=== PATIENT | male | born 1950 | race African-American/Black ===

== ENCOUNTER 2017-07-07 14:02 | Observation (INO) | payer MEDICARE, MEDICAID ==
--- NOTE | 2017-07-07 14:43 | CT ---
CT BRAIN WITHOUT CONTRAST: Date: 07/07/17 HISTORY: Dizziness. Headache. FINDINGS: There are changes of cortical atrophy. Ventricular size is appropriate. No evidence of infarct, hemor rhage, midline shift, or abnormal extra-axial fluid collections are seen. The bony calvarium is intac t. The visualized paranasal sinuses and mastoid air cells are well aerated. No acute calvarial abnorm alities are seen. IMPRESSION: No CT evidence of acute intracranial process. POS: OFF
--- NOTE | 2017-07-07 14:57 | RAD ---
CHEST 1 VIEW: Date: 07/07/17 COMPARISON: 02/25/14. HISTORY: Chest pain. FINDINGS: There are sternotomy wires. Slight elongation of the aorta. Normal cardiac silhouette. Pulmonary vess els are normal. Costophrenic angles are clear. Diminished lung volumes. No mass or consolidation. Inc reased lucency of left lung apex. Pneumothorax cannot be excluded. No osseous abnormalities. IMPRESSION: Decreased lung volumes which may be due to poor inspiration. Possible left apical pneumothorax. Two v iew chest radiograph with better inspiration is recommended. Results of study discussed with Dr. Aguilar on 07/07/17 at 1449 hours. CODE CR. POS: [facility]
[2017-07-07] MEDS ORDERED: Acetaminophen 500 MG TAB ONE (15:17)
--- NOTE | 2017-07-07 15:35 | RAD ---
PA AND LATERAL VIEWS CHEST: HISTORY: Shortness of breath. FINDINGS: Comparison is made with the exam of 08/28/09. There are changes of median sternotomy. The heart size is normal. No confluent areas of consolidati on, pneumothoraces, or pleural effusions are seen. Degenerative changes are present in the spine. No radiographic evidence of acute cardiopulmonary process. The soft tissue density in the right para tracheal region is stable. IMPRESSION: No radiographic evidence of acute cardiopulmonary process. POS: OFF
[2017-07-07 15:46] LABS: #Eosinphils 0.9 thou/uL (0.0-0.7); #Lymphocytes 2.2 thou/uL (1.20-3.40); #Monocytes 0.8 thou/uL (0.11-0.59); #Neutrophils 5.1 thou/uL (1.40-6.50); %Basophils 0.5 % (0.0-1.0); %Eosinophils 9.8 % (0.0-10.0); %Lymphocytes 24.2 % (21.0-51.0); %Monocytes 9.2 % (0.0-10.0); %Neutrophils 56.3 % (42.0-75.0); Hemoglobin 13.3 g/dL (14.0-18.0); Mean Corpuscular HGB CONC 32.9 g/dL (32.0-36.0); Mean Corpuscular Hemoglobin 31.9 pg (27.0-31.0); Mean Corpuscular Volume 96.8 fl (80.0-94.0); Mean Platelet Volume 6.7 fL (7.4-10.4); Platelet Count 379 thou/uL (130-400); RBC Distribution Width 12.4 % (11.5-14.5); Red Blood Cell (RBC) Count 4.18 mill/uL (4.70-6.10); White Blood Cell (WBC) Count 9.1 thou/uL (4.8-10.8)
[2017-07-07 16:09] LABS: CKMB 3.4 ng/mL (0-6.6); Troponin I 0.011 ng/mL (< 0.028)
[2017-07-07 16:10] LABS: ALT (SGPT) 21 U/L (8-55); AST (SGOT) 18 U/L (5-34); Albumin 4.2 g/dL (3.4-4.8); Alkaline Phosphatase 81 U/L (40-150); Anion Gap 14 mmol/L (10-20); BUN (Urea Nitrogen) 7 mg/dL (8.4-25.7); Bilirubin, Total 0.5 mg/dL (0.2-1.2); Calc. Creatinine Clearance 0 mL/min (70-130); Calcium 9.6 mg/dL (7.8-10.44); Carbon Dioxide 21 mmol/L (23-31); Chloride 95 mmol/L (98-107); Estimated GFR-MDRD Greater than 90; Globulin 3.3 g/dL (2.4-3.5); Glucose 92 mg/dL (80-115); Lipase 28 U/L (8-78); Potassium 4.3 mmol/L (3.5-5.1); Protein, Total 7.5 g/dL (5.8-8.1); Sodium 126 mmol/L (136-145)
[2017-07-07] MEDS ORDERED: Sodium Chloride 0.9% 1,000 ML IV SCH (19:45)
[2017-07-07 23:02] LABS: Troponin I 0.023 ng/mL (< 0.028)
[2017-07-08 06:04] LABS: Cardiac Risk 4.4 (Less than 4.5)
[2017-07-08] MEDS ORDERED: Aspirin 325 MG TAB PO SCH (09:00)
[2017-07-08] MEDS: Carvedilol 3.125 MG TAB PO SCH ×2 (09:30→20:15)
[2017-07-08] MEDS: Enoxaparin Sodium 30 MG/0.3 ML SYRINGE SC SCH ×2 (09:30→09:31)
[2017-07-08] MEDS ORDERED: Nitroglycerin 0.4 MG TAB (25 Tab Bottle) SL PRN (11:50)
[2017-07-08] MEDS ORDERED: traMADol HCl 50 MG TAB PO PRN (11:50)
[2017-07-08] MEDS ORDERED: [UNRECOGNIZED DRUG - OTHER] PO SCH (12:00)
[2017-07-08 12:17] LABS: #Eosinphils 0.7 thou/uL (0.0-0.7); #Lymphocytes 2.2 thou/uL (1.20-3.40); #Monocytes 0.7 thou/uL (0.11-0.59); #Neutrophils 3.6 thou/uL (1.40-6.50); %Basophils 0.1 % (0.0-1.0); %Lymphocytes 30.2 % (21.0-51.0); %Monocytes 9.2 % (0.0-10.0); %Neutrophils 50.5 % (42.0-75.0); Hemoglobin 12.4 g/dL (14.0-18.0); Mean Corpuscular Hemoglobin 31.7 pg (27.0-31.0); Mean Corpuscular Volume 96.2 fl (80.0-94.0); Mean Platelet Volume 6.7 fL (7.4-10.4); Platelet Count 374 thou/uL (130-400); RBC Distribution Width 12.3 % (11.5-14.5); Red Blood Cell (RBC) Count 3.92 mill/uL (4.70-6.10); White Blood Cell (WBC) Count 7.2 thou/uL (4.8-10.8)
--- NOTE | 2017-07-08 12:20 | PDOC.PN ---
- Subjective Encounter Start Date: 07/08/17 Encounter Start Time: 12:16 -: non-verbal Subjective: nsg notes rev, sayra ovn, 4 family members @ bedside, pt still has some -: nausea and ARCHER and chest pain but less severe. + BM earlier this morning - Objective Resuscitation Status: Resuscitation Status FULL:Full Resuscitation Vital Signs & Weight: Vital Signs (12 hours) Temp Pulse Resp BP Pulse Ox 07/08/17 11:53 97.9 F 63 18 131/80 99 07/08/17 08:00 97.9 F 68 16 122/76 100 07/08/17 07:02 95 07/08/17 04:00 98 F 58 L 20 148/85 H 98 07/08/17 01:11 64 Weight Weight 243 lb 3 oz I&O: 07/07/17 07/08/17 07/09/17 06:59 06:59 06:59 Intake Total 2340 180 Output Total 1450 Balance 890 180 Result Diagrams: 07/07/17 15:29 07/07/17 15:29 Phys Exam - Physical Examination Constitutional: NAD lying in hospital bed HEENT: PERRLA, moist MMs, sclera anicteric Neck: no nodes Respiratory: no wheezing, no rales, no rhonchi, clear to auscultation bilateral marginal air mvmt Cardiovascular: RRR, no significant murmur, no rub Gastrointestinal: soft, non-tender, no distention, positive bowel sounds Musculoskeletal: no edema, pulses present Neurological: moves all 4 limbs Psychiatric: normal affect Dx/Plan - Plan 67M with hx CABG, CAD, HTN, HLD, DM2, who p/w chest pain chest pain * initial troponin has been neg * pt has elev risk factors including prior hx of CAD req CABG * apparently pt ran out of his medications a day prior to onset of symptoms and presentation * trop have been indetermine - repeat trop * pending ECHO * will c/s cardiology - has seen Dr. Romeo for a [facility] in 2013 hyponatremia * stable mentation per family * recheck BMP and closely monitor neurological status hx CAD s/p CABG, as per above HTN, stable and controlled with continued ssx HLD stable DM2 stable diet: cardiac diabetic Review of Systems - Medications/Allergies Allergies/Adverse Reactions: Allergies Allergy/AdvReac Type Severity Reaction Status Date / Time No Known Allergies Allergy Unverified 02/25/14 17:38 Medications: Current Medications Aspirin (Ecotrin) 325 mg PO DAILY [facility] Carvedilol (Coreg) 3.125 mg PO BID [facility] Last Admin: 07/08/17 09:30 Dose: 3.125 mg Carvedilol (Coreg) 3.125 mg PO DAILY [facility] Enoxaparin Sodium (Lovenox) 30 mg SC 0900 [facility] Last Admin: 07/08/17 09:31 Dose: 30 mg Hydrochlorothiazide (Hydrochlorothiazide) 25 mg PO DAILY [facility] Isosorbide Mononitrate (Imdur) 60 mg PO DAILY [facility] Losartan Potassium (Cozaar) 25 mg PO DAILY [facility] Metformin HCl (Glucophage Xr) 1,000 mg PO BID[facility] Nitroglycerin (Nitrostat) 0.4 mg SL Q5MIN PRN PRN Reason: Chest Pain Prozac Weekly 90mg Patient's Home Medication 1 each PO Q7D [facility] Potassium Chloride (K-Dur) 20 meq PO DAILY [facility] Pravastatin Sodium (Pravachol) 40 mg PO HS [facility] Ranolazine (Ranexa) 500 mg PO BID [facility] Tramadol HCl (Ultram) 25 mg PO TID PRN PRN Reason: Pain
[2017-07-08] MEDS ORDERED: Dextrose 5% in Water 1,000 ML IV PRN (12:28)
[2017-07-08] MEDS ORDERED: HumaLOG 300 UNITS/3 ML VIAL SC PRN (12:28)
[2017-07-08] MEDS ORDERED: Dextrose 50% Abboject 50 ML SYRINGE SLOW IVP PRN (12:28)
[2017-07-08 12:35] LABS: Anion Gap 9 mmol/L (10-20); BUN (Urea Nitrogen) 8 mg/dL (8.4-25.7); Calc. Creatinine Clearance 130 mL/min (70-130); Calcium 9.3 mg/dL (7.8-10.44); Carbon Dioxide 24 mmol/L (23-31); Chloride 105 mmol/L (98-107); Estimated GFR-MDRD Greater than 90; Glucose 91 mg/dL (80-115); Sodium 134 mmol/L (136-145)
[2017-07-08 12:41] LABS: Troponin I Less than 0.010 ng/mL (< 0.028)
--- NOTE | 2017-07-08 13:44 | HP ---
CHIEF COMPLAINT: Chest pain. 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 It appears that the patient had been out of his home medications approximately 1-2 days prior to presentation in cluding his pain medications specifically. The patient's symptoms of chest pain described mostly as a chest pressure with a slight burning component and also accompanied by headache, nausea without abd ominal discomfort. No chest pressure. No left-sided arm numbness or tingling. No episodes of diaph oresis. The patient endorses prior similar episodes in the past. It is unclear if these are directl y related to his prior cardiac event or not. The patient himself has ability to provide a history, is modulated by his family at bedside who provi de a sign language translation at this point in time. REVIEW OF SYSTEMS: Review of systems limited by family members translation as discussed above. Constitutional: No fevers or chills. No significant weight changes that we are aware of. HEENT: Headache as described above as "all over" without vision changes. Cardiovascular: As described above. Respiratory: No recent colds or congestion, sinusitis or ear pain. Gastrointestinal: Nausea as above with retching without vomiting, no diarrhea, no constipation. Musculoskeletal: No focal myalgias or arthralgias. Remainder of the review of systems otherwise negative. PAST MEDICAL HISTORY: As per HPI, 1. Deaf and mute. 2. Diabetes. 3. Hyperlipidemia. 4. Hypertension. 5. Coronary artery disease, status post CABG. HOME MEDICATIONS: Please see the EMR for full details. His list currently includes carvedilol 3.125 mg p.o. daily, aspirin 325 mg p.o. daily, isosorbide mononitrate 60 mg p.o. daily, hydrochlorothiazi de 25 mg p.o. daily, fluoxetine 90 mg p.o. as directed, tramadol 25 mg p.o. t.i.d. p.r.n., metformin 1000 mg p.o. b.i.d., ranolazine 500 mg p.o. b.i.d., pravastatin 40 mg p.o. at bedtime, potassium chlo ride 20 mEq p.o. daily, nitroglycerin 0.4 mg sublingual every 5 minutes p.r.n., losartan 25 mg p.o. d aily. ALLERGIES: No known drug allergies. FAMILY HISTORY: Significant for diabetes, hypertension, coronary artery disease in multiple family m embers. SOCIAL HISTORY: The patient denies any alcohol, tobacco or illicit drug use. His family at bedside endorses but in translation, he wishes to be FULL CODE at this point in time. PHYSICAL EXAMINATION: GENERAL: The patient is awake, interactive, no acute distress, lying in the hospital bed. HEENT: Normocephalic, atraumatic. Moist mucous membranes. Extraocular motions are intact. No post erior oral pharyngeal erythema or exudate. CARDIOVASCULAR: S1 and S2. No murmurs, rubs or gallops. Pulses 2+ bilateral upper extremities. No pitting pedal edema. RESPIRATORY: Reasonable mitral air movement. No wheezes, rales or rhonchi. Clear to auscultation b ilaterally. ABDOMEN: Large, obese, positive bowel sounds, soft, nontender to palpation. MUSCULOSKELETAL: Moving all 4 extremities. LABORATORY AND IMAGING: WBC 9.1, hemoglobin 13.3, hematocrit 40.5, platelet 379. Sodium 126, potass ium 4.3, chloride 95, bicarbonate 21, BUN 7, creatinine 0.85, total bilirubin 0.5, AST 18, ALT 21, al kaline phosphatase 81, troponin 0.011 and subsequent 0.023, total protein 7.5, albumin 4.2, lipase is 28. ASSESSMENT AND PLAN: A 67-year-old male with a known history of coronary artery disease who presente d with chief complaint of chest pain. 1. Chest pain. The patient certainly has personal risk factors with increased risk of having a zacarias nary event. EKG does not demonstrate STEMI at this point in time, place the patient with serial trop onins, echocardiogram to consider a stress test as well. Resume the patient's home regimen. 2. Hyponatremia, unclear if this is incidental or related to the patient's nausea. I will hold the patient's hydrochlorothiazide. Recheck a BMP in the morning. The patient's mentation appears to be at baseline per patient's family at bedside. 3. Hypertension, stable. 4. Hyperlipidemia, stable. 5. Type 2 diabetes, stable. Check hemoglobin A1c and closely monitor glucose with Accu-Cheks. Admit the patient to observation status. FULL CODE. Thank you for asking me to care for the patient. Questions or concerns, please contact me at [facility].
[2017-07-08 13:54] LABS: Hemoglobin A1c 5.9 % (4.0-6.0)
[2017-07-08] MEDS: metFORMIN XR 500 MG TAB PO SCH (17:21)
[2017-07-08] MEDS: Pravastatin Sodium 40 MG TAB PO SCH (20:16)
[2017-07-08 20:51] LABS: Troponin I Less than 0.010 ng/mL (< 0.028)
[2017-07-09 06:41] LABS: Troponin I Less than 0.010 ng/mL (< 0.028)
[2017-07-09] MEDS: metFORMIN XR 500 MG TAB PO SCH ×2 (08:44→17:36)
[2017-07-09] MEDS: Potassium Chloride 20 MEQ TAB PO SCH (08:44)
[2017-07-09] MEDS: Carvedilol 3.125 MG TAB PO SCH ×3 (08:44→20:41)
[2017-07-09] MEDS: Aspirin 325 mg Enteric Coated Tablet PO SCH (08:44)
[2017-07-09] MEDS: Losartan 25 MG TAB PO SCH (08:44)
[2017-07-09] MEDS: Enoxaparin Sodium 30 MG/0.3 ML SYRINGE SC SCH (08:44)
[2017-07-09] MEDS ORDERED: Hydrochlorothiazide 25 MG TAB PO SCH (09:00)
[2017-07-09 10:11] VITALS: BMI 35.9
--- NOTE | 2017-07-09 10:26 | PDOC.PN ---
- Subjective Encounter Start Date: 07/09/17 Encounter Start Time: 10:25 -: non-verbal Subjective: nsg note srev, sayra ovn still has intermittent CP relieved by nitro -: brother at bedside providing modified sign language translation -: pt no new c/o - Objective Resuscitation Status: Resuscitation Status FULL:Full Resuscitation Vital Signs & Weight: Vital Signs (12 hours) Temp Pulse Resp BP Pulse Ox 07/09/17 07:55 98.2 F 57 L 16 07/09/17 07:36 98.2 F 57 L 16 139/77 97 07/09/17 04:00 97.5 F L 58 L 20 149/81 H 98 07/08/17 23:40 98.3 F 65 16 159/81 H 95 Weight Weight 236 lb I&O: 07/08/17 07/09/17 07/10/17 06:59 06:59 06:59 Intake Total 2340 660 240 Output Total 1450 Balance 890 660 240 Result Diagrams: 07/08/17 12:07 07/08/17 12:07 Additional Labs: Accuchecks 07/09/17 07/08/17 07/08/17 04:05 20:42 16:40 POC Glucose 104 125 H 99 Phys Exam - Physical Examination Constitutional: NAD seated in hospital bed HEENT: PERRLA, moist MMs, sclera anicteric, oral pharynx no lesions Respiratory: no wheezing, no rales, no rhonchi, clear to auscultation bilateral limited anterior exam Cardiovascular: RRR, no significant murmur, no rub Gastrointestinal: soft, non-tender, no distention, positive bowel sounds Musculoskeletal: no edema, pulses present Neurological: moves all 4 limbs Psychiatric: normal affect Deviation from normal: per pts family Dx/Plan - Plan 67M with hx CABG, CAD, HTN, HLD, DM2, who p/w chest pain chest pain * initial troponin has been neg * ECHO has been unremarkable * pt has elev risk factors including prior hx of CAD req CABG * apparently pt ran out of his medications a day prior to onset of symptoms and presentation * will c/s cardiology - has seen Dr. Romeo for a [facility] in 2013 * family is concerned about stress testing because they'd heard its a very dangerous test hyponatremia, resolved with no symptoms and without intervention * stable mentation per family * ?lab error on admit hx CAD s/p CABG, as per above HTN, stable and controlled with continued ssx HLD stable DM2 stable diet: cardiac, diabetic activity: as rafal dvt ppx Review of Systems - Medications/Allergies Allergies/Adverse Reactions: Allergies Allergy/AdvReac Type Severity Reaction Status Date / Time No Known Allergies Allergy Unverified 02/25/14 17:38 Medications: Current Medications Aspirin (Ecotrin) 325 mg PO DAILY [facility] Last Admin: 07/09/17 08:44 Dose: 325 mg Carvedilol (Coreg) 3.125 mg PO BID [facility] Last Admin: 07/09/17 08:44 Dose: 3.125 mg Carvedilol (Coreg) 3.125 mg PO DAILY [facility] Last Admin: 07/09/17 08:45 Dose: Not Given Dextrose/Water (Dextrose 50%) 25 gm SLOW IVP PRN PRN PRN Reason: Hypoglycemia Enoxaparin Sodium (Lovenox) 30 mg SC 0900 [facility] Last Admin: 07/09/17 08:44 Dose: 30 mg Glucagon (Glucagon) 1 mg IM PRN PRN PRN Reason: Hypoglycemia Dextrose/Water (D5w) 1,000 mls @ 0 mls/hr IV .Q0M PRN; As Directed PRN Reason: Hypoglycemia Insulin Human Lispro (Humalog) 0 units SC .MILD SLIDING SCALE PRN PRN Reason: Mild Correctional Scale Isosorbide Mononitrate (Imdur) 60 mg PO DAILY [facility] Last Admin: 07/09/17 08:44 Dose: 60 mg Losartan Potassium (Cozaar) 25 mg PO DAILY [facility] Last Admin: 07/09/17 08:44 Dose: 25 mg Metformin HCl (Glucophage Xr) 1,000 mg PO BID[facility] Last Admin: 07/09/17 08:44 Dose: 1,000 mg Nitroglycerin (Nitrostat) 0.4 mg SL Q5MIN PRN PRN Reason: Chest Pain Last Admin: 07/08/17 18:47 Dose: 0.4 mg Prozac Weekly 90mg Patient's Home Medication 1 each PO Q7D [facility] Potassium Chloride (K-Dur) 20 meq PO DAILY [facility] Last Admin: 07/09/17 08:44 Dose: 20 meq Pravastatin Sodium (Pravachol) 40 mg PO HS [facility] Last Admin: 07/08/17 20:16 Dose: 40 mg Ranolazine (Ranexa) 500 mg PO BID [facility] Last Admin: 07/09/17 08:44 Dose: 500 mg Tramadol HCl (Ultram) 25 mg PO TID PRN PRN Reason: Pain
[2017-07-09 12:26] LABS: Troponin I Less than 0.010 ng/mL (< 0.028)
[2017-07-09] MEDS: Pravastatin Sodium 40 MG TAB PO SCH (20:40)
--- NOTE | 2017-07-09 21:10 | CON ---
DATE OF CONSULTATION: 07/09/2017 REASON FOR CONSULTATION: Chest pain. HISTORY OF PRESENT ILLNESS: This is a 67-year-old gentleman who is currently deaf and mute. His bro ther is currently available and has given the history. His main complaint was chest discomfort. He has been taking sublingual nitroglycerin, ran out. The patient describes a burning-type discomfort a ssociated with headaches, although was taking nitroglycerin. He also had associated nausea. PAST MEDICAL HISTORY: CAD, diabetes mellitus, hyperlipidemia, hypertension. PAST SURGICAL HISTORY: CABG. MEDICATIONS: Carvedilol, aspirin, isosorbide, hydrochlorothiazide, fluoxetine, tramadol, metformin, ranolazine, and pravastatin. ALLERGIES: None. FAMILY HISTORY: Positive for CAD. SOCIAL HISTORY: No current tobacco or alcohol use. REVIEW OF SYSTEMS: Ten-point review of systems reviewed and as above, otherwise negative. PHYSICAL EXAMINATION: VITAL SIGNS: Blood pressure 118/62, pulse 62, temperature 98.4. GENERAL: Patient is a pleasant male, who is in no acute distress. The patient appears his stated ag e. NEUROLOGIC: The patient is alert and oriented times 3 with no focal neurologic deficits. HEENT: Sclerae without icterus. Mouth has moist mucous membranes with normal pallor. NECK: No JVD. Carotid upstroke brisk. No bruits bilaterally. LUNGS: Clear to auscultation with unlabored respirations. BACK: No scoliosis or kyphosis. CARDIAC: Regular rate and rhythm with normal S1 and S2. No S3 or S4 noted. No significant rubs, murmurs, thrills, or gallops noted throughout the precordium. PMI is not displaced. There is no parasternal heave. ABDOMEN: Soft, nontender, nondistended. No peritoneal signs present. No hepatosplenomegaly. No abnormal striae. EXTREMITIES: 2+ femoral and 2+ dorsalis pedis pulses. No cyanosis, clubbing, or edema. SKIN: No gross abnormalities. PERTINENT LABORATORY DATA: Hemoglobin 12.4, creatinine 0.85. Peak troponin 0.023. IMPRESSION: 1. Chest pain. 2. Coronary artery disease. 3. Status post bypass surgery. RECOMMENDATIONS: Mr. Batess troponin is currently negative. His symptoms could be typical for an alta. At this point, given his negative troponin, we will recommend a noninvasive stress study to as sess for any areas of ischemia. Further recommendations per Dr. Cuba Villatoro in a.m.
[2017-07-10] MEDS: metFORMIN XR 500 MG TAB PO SCH (09:23)
[2017-07-10] MEDS: Carvedilol 3.125 MG TAB PO SCH ×2 (09:23)
[2017-07-10] MEDS: Aspirin 325 mg Enteric Coated Tablet PO SCH (09:23)
[2017-07-10] MEDS: Enoxaparin Sodium 30 MG/0.3 ML SYRINGE SC SCH (09:23)
[2017-07-10] MEDS: Potassium Chloride 20 MEQ TAB PO SCH (09:24)
[2017-07-10] MEDS: Losartan 25 MG TAB PO SCH (09:24)
[2017-07-10] MEDS ORDERED: Regadenoson 0.4 MG/5 ML SYRINGE ONE (10:24)
--- NOTE | 2017-07-10 13:40 | NM ---
CARDIAC SPECT: CLINICAL HISTORY: 67-year-old male with chest pain, coronary artery disease, CABG, hypertension, diabetes, and dyslipid emia. TECHNIQUE: A myocardial perfusion scan was performed using the single isotope one day protocol with technetium-9 9m sestamibi. 10 mCi were injected intravenously for the rest exam followed by 28 mCi for the stress exam. Pharmacologic stress with Lexiscan was monitored and interpreted by Dr. Parrish. FINDINGS: Homogeneous tracer distribution is seen in the myocardial segments on stress and rest images without fixed or reversible defects. GATED SPECT LVEF: 60%. WALL MOTION EXAM: Normal. IMPRESSION: Normal myocardial perfusion scan. POS: [facility]
[2017-07-10 15:45] VITALS: BP 138/76; TEMP 99.1
== END 2017-07-10 17:42 | disposition home or self-care (01) ==
LOC: ERS 14:02 → T4-B 17:06 → 2SE 07-08 17:33
PROVIDERS: ADMIT Internal Medicine; ATTEND Internal Medicine
DX: E78.5 Hyperlipidemia, unspecified; E11.9 Type 2 diabetes mellitus without complications; I10 Essential (primary) hypertension; R07.89 Other chest pain; E87.1 Hypo-osmolality and hyponatremia; H91.90 Unspecified hearing loss, unspecified ear; I25.10 Atherosclerotic heart disease of native coronary artery without angina pectoris; Z95.1 Presence of aortocoronary bypass graft
CPT/HCPCS: 70450; 71045; 71046; 78452; 80048; 80053; 80061; 82553; 82962 ×3; 83036; 83690; 84484 ×6; 85025 ×2; 93005; 93017; 93306; 94760 ×2; 96360; 96361 ×3; 96372 ×2; 97139; 97530 ×2; 99285; A9500; G0378; G8978; G8979; 36415; 36416; J1650; J2785

== ENCOUNTER 2021-01-02 23:58 | Emergency (ER) | payer MEDICARE, MEDICAID ==
[2021-01-03 00:47] LABS: #Eosinphils 0.4 thou/uL (0.0-0.7); #Lymphocytes 1.6 thou/uL (1.20-3.40); #Monocytes 0.7 thou/uL (0.11-0.59); #Neutrophils 5.2 thou/uL (1.40-6.50); %Basophils 0.5 % (0.0-1.0); %Eosinophils 4.8 % (0.0-10.0); %Lymphocytes 20.2 % (21.0-51.0); %Monocytes 8.6 % (0.0-10.0); %Neutrophils 65.8 % (42.0-75.0); Hemoglobin 11.9 g/dL (14.0-18.0); Mean Corpuscular HGB CONC 33.6 g/dL (32.0-36.0); Mean Corpuscular Hemoglobin 35.2 pg (27.0-31.0); Mean Platelet Volume 6.5 fL (7.4-10.4); Platelet Count 385 thou/uL (130-400); RBC Distribution Width 11.6 % (11.5-14.5); Red Blood Cell (RBC) Count 3.38 mill/uL (4.70-6.10); White Blood Cell (WBC) Count 7.9 thou/uL (4.8-10.8)
[2021-01-03 02:30] LABS: ALT (SGPT) 15 U/L (8-55); AST (SGOT) 19 U/L (5-34); Alkaline Phosphatase 84 U/L (40-110); Anion Gap 18 mmol/L (10-20); BUN (Urea Nitrogen) 18 mg/dL (8.4-25.7); Bilirubin, Total 0.5 mg/dL (0.2-1.2); Calc. Creatinine Clearance 0 mL/min (70-130); Calcium 9.5 mg/dL (7.8-10.44); Carbon Dioxide 19 mmol/L (23-31); Chloride 97 mmol/L (98-107); Globulin 3.8 g/dL (2.4-3.5); Glucose 99 mg/dL (83-110); Lipase 39 U/L (8-78); Protein, Total 7.8 g/dL (5.8-8.1); Sodium 129 mmol/L (136-145)
[2021-01-03 04:40] LABS: Sodium 128 mmol/L (136-145)
[2021-01-03 04:41] LABS: Anion Gap 14 mmol/L (10-20); BUN (Urea Nitrogen) 18 mg/dL (8.4-25.7); Calc. Creatinine Clearance 0 mL/min (70-130); Calcium 8.6 mg/dL (7.8-10.44); Carbon Dioxide 18 mmol/L (23-31); Chloride 101 mmol/L (98-107); Glucose 93 mg/dL (83-110); Potassium 5.3 mmol/L (3.5-5.1)
[2021-01-03] MEDS ORDERED: Iopamidol 370 76% 100 ML VIAL ONE (09:02)
== END 2021-01-03 06:11 | disposition home or self-care (01) ==
LOC: ERS 23:58
DX: E87.1 Hypo-osmolality and hyponatremia (principal); K80.20 Calculus of gallbladder without cholecystitis without obstruction; E10.9 Type 1 diabetes mellitus without complications; I25.10 Atherosclerotic heart disease of native coronary artery without angina pectoris; I10 Essential (primary) hypertension; Z79.82 Long term (current) use of aspirin; Z79.84 Long term (current) use of oral hypoglycemic drugs; Z79.899 Other long term (current) drug therapy
CPT/HCPCS: 36415; 36416; 74177; 80053; 83690; 85025; Q9967

== ENCOUNTER 2021-01-21 20:44 | Inpatient (IN) | payer MEDICARE, MEDICAID ==
[~2021-01-21 20:44] MED LIST: Iopamidol-370 76% 500 ML 1 ML ONE
[2021-01-21 21:21] LABS: #Eosinphils 0.1 thou/uL (0.0-0.7); #Lymphocytes 0.6 thou/uL (1.20-3.40); #Monocytes 0.5 thou/uL (0.11-0.59); #Neutrophils 7.3 thou/uL (1.40-6.50); %Basophils 0.2 % (0.0-1.0); %Eosinophils 1.4 % (0.0-10.0); %Lymphocytes 7.3 % (21.0-51.0); %Monocytes 5.4 % (0.0-10.0); %Neutrophils 85.7 % (42.0-75.0); Hemoglobin 12.5 g/dL (14.0-18.0); Mean Corpuscular HGB CONC 34.5 g/dL (32.0-36.0); Mean Corpuscular Hemoglobin 36.4 pg (27.0-31.0); Mean Platelet Volume 6.4 fL (7.4-10.4); Platelet Count 441 thou/uL (130-400); RBC Distribution Width 11.6 % (11.5-14.5); Red Blood Cell (RBC) Count 3.43 mill/uL (4.70-6.10); White Blood Cell (WBC) Count 8.5 thou/uL (4.8-10.8)
[2021-01-21 21:54] LABS: ALT (SGPT) 16 U/L (8-55); AST (SGOT) 19 U/L (5-34); Albumin 3.8 g/dL (3.4-4.8); Alkaline Phosphatase 74 U/L (40-110); Anion Gap 18 mmol/L (10-20); BUN (Urea Nitrogen) 46 mg/dL (8.4-25.7); Bilirubin, Total 0.9 mg/dL (0.2-1.2); Calc. Creatinine Clearance 0 mL/min (70-130); Calcium 9.6 mg/dL (7.8-10.44); Carbon Dioxide 18 mmol/L (23-31); Chloride 99 mmol/L (98-107); Globulin 3.7 g/dL (2.4-3.5); Glucose 90 mg/dL (83-110); Lipase 193 U/L (8-78); Protein, Total 7.5 g/dL (5.8-8.1); Sodium 129 mmol/L (136-145)
[2021-01-21] MEDS ORDERED: Pantoprazole 40 MG VIAL ONE (23:01)
[2021-01-21] MEDS ORDERED: Piperacillin/Tazobactam 3.375 GM VIAL ONE (23:01)
[2021-01-21] MEDS ORDERED: Pantoprazole 80 MG in Sodium Chloride 0.9% 100 ML IVPB SCH (23:30)
[2021-01-21] MEDS ORDERED: Albuterol Sulfate 2.5 mg/0.5 ml Neb ONE (23:51)
[2021-01-21] MEDS ORDERED: Insulin Regular 300 UNITS/3 ML VIAL ONE (23:52)
[2021-01-21] MEDS ORDERED: Calcium Gluc 4.6 MEQ/10 ML (100 MG/ML) ONE (23:53)
[2021-01-21] MEDS ORDERED: Dextrose 50% Abboject 50 ML SYRINGE ONE (23:58)
[2021-01-22] MEDS ORDERED: Norepinephrine 4 MG/4 ML VIAL ONE
[2021-01-22] MEDS ORDERED: Albumin 5% 500 ML ONE
[2021-01-22] MEDS ORDERED: Fentanyl 100 MCG/2 ML VIAL ONE (00:02)
[2021-01-22] MEDS ORDERED: Albuterol Sulfate HFA (OR ONLY) ONE ×2 (00:02→00:20)
[2021-01-22] MEDS ORDERED: Ketamine 50 MG/ML (10ML VIAL) ONE (00:19)
[2021-01-22] MEDS ORDERED: PHENYLEPHRINE-NS 100 MCG/ML 10 ML SYRINGE ONE (00:20)
[2021-01-22] MEDS ORDERED: Rocuronium Bromide 10 MG/ML (10ML VIAL) ONE (00:20)
[2021-01-22] MEDS ORDERED: ePHEDrine 50 MG/ML VIAL ONE (00:20)
[2021-01-22] MEDS ORDERED: Lidocaine 1% PF 5 ML VIAL ONE (00:20)
[2021-01-22] MEDS ORDERED: Sodium Chloride 0.9% 30 ML ONE (00:26)
[2021-01-22 00:49] LABS: SARS-CoV-2 NAA Rapid Test Not Detected (NotDetected)
[2021-01-22] MEDS ORDERED: Sodium Bicarb 50 MEQ/50 ML Abboject 8.4% SYRINGE ONE (00:49)
[2021-01-22] MEDS ORDERED: Dextrose 5% in Water 1,000 ML IV PRN (02:27)
[2021-01-22] MEDS ORDERED: HumaLOG 300 UNITS/3 ML VIAL SC PRN (02:27)
[2021-01-22] MEDS ORDERED: Promethazine HCl 25 MG/ML VIAL IM PRN (02:27)
[2021-01-22] MEDS ORDERED: hydrALAZINE 20 MG/ML VIAL SLOW IVP PRN (02:27)
[2021-01-22] MEDS ORDERED: Ondansetron PF 4 MG/2 ML Vial IVP PRN (02:27)
[2021-01-22 02:32] LABS: Actual Bicarbonate (HCO3a) 14.8 mEq/L (22-28); Base Excess (BEa) -9.2 mEq/L (-2.0 to +3.0); CO2 Tension 26.5 mmHg (35.0-45.0); Calcium, Ionized (arterial) 1.01 mmol/L (1.12-1.30); Carboxyhemoglobin (COHb) 0.3 gm% (0.0-3.0); Hemoglobin (Hb) 10.1 g/dL (14.0-18.0); O2 Tension (PaO2), arterial 413.1 mmHg (> 70.0); Potassium - ABG Lab 3.97 mmol/L (3.70-5.30); pH, Arterial 7.37 (7.35-7.45)
[2021-01-22] MEDS ORDERED: Fentanyl CADD 100 ML ONE ×2 (02:32→22:55)
[2021-01-22 02:34] LABS: ALV-art Gradient 266.775 mmHg (0-20); Puncture Site LINE
[2021-01-22] MEDS: Sodium Chloride 0.9% 1,000 ML IV SCH ×3 (02:37→20:29)
[2021-01-22] MEDS ORDERED: Morphine 4 MG/ML VIAL SLOW IVP PRN (02:44)
[2021-01-22] MEDS ORDERED: DISCONTINUE PREVIOUS NARCOTIC PAIN MEDICATIONS AND BENZODIAZEPINES FS SCH (02:45)
[2021-01-22] MEDS ORDERED: Morphine 2 MG/ML VIAL SLOW IVP PRN (02:45)
[2021-01-22] MEDS ORDERED: Propofol BOLUS 1,000 MG/100 ML VIAL IV PRN (02:45)
[2021-01-22] MEDS ORDERED: Propofol 1,000 MG/100 ML VIAL IV PRN (02:45)
[2021-01-22] MEDS ORDERED: Fentanyl BOLUS 250 ML IVPB PRN (02:45)
[2021-01-22 02:47] LABS: Lactic Acid 2.9 mmol/L (0.5-2.2)
[2021-01-22] MEDS: Fluconazole In NaCl,Iso-Osm 200 MG in Premix Bag 1 BAG IVPB SCH (03:24)
[2021-01-22 04:32] LABS: Band 19 % (5-11); Hemoglobin 9.7 g/dL (14.0-18.0); Hypochromia SLIGHT = 6-15 cells (100X) (0-5/hpf); Lymphocytes 6 % (21-51); MDiff Complete? YES; Mean Corpuscular HGB CONC 35.8 g/dL (32.0-36.0); Mean Corpuscular Hemoglobin 38.1 pg (27.0-31.0); Mean Platelet Volume 6.6 fL (7.4-10.4); Metamyelocyte 1 % (0-0); Monocytes 8 % (0-10); Neutrophil 66 % (42-75); Platelet Count 354 thou/uL (130-400); Platelet Morphology Comment Appears Adequate; RBC Distribution Width 11.6 % (11.5-14.5); Red Blood Cell (RBC) Count 2.53 mill/uL (4.70-6.10); White Blood Cell (WBC) Count 8.8 thou/uL (4.8-10.8)
[2021-01-22] MEDS: Piperacillin/Tazobactam 3.375 GM in Sodium Chloride 0.9% 100 ML IVPB SCH ×3 (04:39→20:31)
[2021-01-22 04:45] LABS: ALT (SGPT) 58 U/L (8-55); AST (SGOT) 75 U/L (5-34); Alkaline Phosphatase 42 U/L (40-110); Anion Gap 14 mmol/L (10-20); BUN (Urea Nitrogen) 40 mg/dL (8.4-25.7); Bilirubin, Total 1.3 mg/dL (0.2-1.2); Calc. Creatinine Clearance 48 mL/min (70-130); Calcium 7.2 mg/dL (7.8-10.44); Carbon Dioxide 13 mmol/L (23-31); Chloride 111 mmol/L (98-107); Globulin 2.2 g/dL (2.4-3.5); Glucose 87 mg/dL (83-110); Potassium 4.1 mmol/L (3.5-5.1); Protein, Total 5.2 g/dL (5.8-8.1); Sodium 134 mmol/L (136-145)
[2021-01-22] MEDS ORDERED: Piperacillin/Tazobactam 2.25 GM in Sodium Chloride 0.9% 100 ML IVPB SCH (06:00)
[2021-01-22 08:47] LABS: Actual Bicarbonate (HCO3a) 13.7 mEq/L (22-28); Analyzer IN Cardio ER; Base Excess (BEa) -9.7 mEq/L (-2.0 to +3.0); Calcium, Ionized (arterial) 1.06 mmol/L (1.12-1.30); Carboxyhemoglobin (COHb) 0.2 gm% (0.0-3.0); O2 Tension (PaO2), arterial 145.6 mmHg (> 70.0); Potassium - ABG Lab 3.65 mmol/L (3.70-5.30); pH, Arterial 7.39 (7.35-7.45)
[2021-01-22 09:00] LABS: CO2 Tension 22.9 mmHg (35.0-45.0); Puncture Site Arterial Line
[2021-01-22 09:01] LABS: ALV-art Gradient 182.275 mmHg (0-20)
[2021-01-22] MEDS ORDERED: Pantoprazole 40 MG VIAL IVP SCH (11:00)
[2021-01-22] MEDS ORDERED: Furosemide 40 MG/4 ML VIAL ONE (12:03)
[2021-01-22] MEDS ORDERED: Furosemide 40 MG/4 ML VIAL SLOW IVP SCH (12:15)
[2021-01-22] MEDS: Norepinephrine 8 MG/0.9% NS 250 ML IVPB SCH ×2 (12:36→22:58)
[2021-01-22] MEDS: Lorazepam 2 MG/ML VIAL SLOW IVP PRN ×2 (13:37→17:12)
[2021-01-22] MEDS: Pantoprazole 40 MG VIAL IVP SCH (20:33)
[2021-01-23] MEDS: Fentanyl CADD 100 ML IV SCH ×2 (02:55→20:59)
[2021-01-23] MEDS: Fluconazole In NaCl,Iso-Osm 200 MG in Premix Bag 1 BAG IVPB SCH (02:56)
[2021-01-23] MEDS: Piperacillin/Tazobactam 3.375 GM in Sodium Chloride 0.9% 100 ML IVPB SCH ×3 (04:07→19:29)
[2021-01-23] MEDS: Sodium Chloride 0.9% 1,000 ML IV SCH ×2 (04:59→17:31)
[2021-01-23 05:24] LABS: Band 13 % (5-11); Eosinophils 1 % (0-10); Hemoglobin 8.7 g/dL (14.0-18.0); Lymphocytes 7 % (21-51); MDiff Complete? YES; Macrocytosis SLIGHT = 6-15 cells (100X) (0-5/hpf); Mean Corpuscular HGB CONC 34.2 g/dL (32.0-36.0); Mean Corpuscular Hemoglobin 36.1 pg (27.0-31.0); Mean Platelet Volume 6.8 fL (7.4-10.4); Metamyelocyte 2 % (0-0); Monocytes 12 % (0-10); Neutrophil 64 % (42-75); Platelet Count 357 thou/uL (130-400); Platelet Morphology Comment Appears Adequate; RBC Distribution Width 11.8 % (11.5-14.5); Reactive Lymphocytes 1 % (0-10); White Blood Cell (WBC) Count 19.1 thou/uL (4.8-10.8)
[2021-01-23 05:28] LABS: ALT (SGPT) 39 U/L (8-55); AST (SGOT) 38 U/L (5-34); Albumin 2.7 g/dL (3.4-4.8); Alkaline Phosphatase 42 U/L (40-110); Anion Gap 17 mmol/L (10-20); BUN (Urea Nitrogen) 20 mg/dL (8.4-25.7); Bilirubin, Total 1.7 mg/dL (0.2-1.2); Calc. Creatinine Clearance 65 mL/min (70-130); Calcium 7.3 mg/dL (7.8-10.44); Carbon Dioxide 14 mmol/L (23-31); Chloride 110 mmol/L (98-107); Globulin 2.2 g/dL (2.4-3.5); Glucose 103 mg/dL (83-110); Potassium 3.9 mmol/L (3.5-5.1); Protein, Total 4.9 g/dL (5.8-8.1); Sodium 137 mmol/L (136-145)
[2021-01-23] MEDS: Sodium Chloride 0.9% (PF) 10 ML VIAL FS PRN (09:35)
[2021-01-23] MEDS: Pantoprazole 40 MG VIAL IVP SCH ×2 (09:35→20:58)
[2021-01-23 10:29] LABS: Calcium, Ionized (arterial) 1.05 mmol/L (1.12-1.30); Carboxyhemoglobin (COHb) 0.3 gm% (0.0-3.0); Hemoglobin (Hb) 9.1 g/dL (14.0-18.0); O2 Tension (PaO2), arterial 136.6 mmHg (> 70.0); Potassium - ABG Lab 3.56 mmol/L (3.70-5.30); pH, Arterial 7.33 (7.35-7.45)
[2021-01-23] MEDS: Sodium Bicarbonate 70 MEQ in Sodium Chloride 0.45% 1,000 ML IV SCH ×2 (12:12→22:00)
[2021-01-23] MEDS: Norepinephrine 8 MG/0.9% NS 250 ML IVPB SCH (14:12)
[2021-01-23] MEDS ORDERED: Fentanyl CADD 0 ML ONE (19:58)
[2021-01-23] MEDS ORDERED: Fentanyl CADD 100 ML ONE (20:32)
[2021-01-23] MEDS: Lorazepam 2 MG/ML VIAL SLOW IVP PRN (23:11)
[2021-01-24] MEDS: Fluconazole In NaCl,Iso-Osm 200 MG in Premix Bag 1 BAG IVPB SCH (02:19)
[2021-01-24] MEDS: Piperacillin/Tazobactam 3.375 GM in Sodium Chloride 0.9% 100 ML IVPB SCH ×3 (04:10→20:11)
[2021-01-24 05:13] LABS: Band 8 % (5-11); Hemoglobin 8.1 g/dL (14.0-18.0); Hypochromia SLIGHT = 6-15 cells (100X) (0-5/hpf); Lymphocytes 11 % (21-51); MDiff Complete? YES; Macrocytosis SLIGHT = 6-15 cells (100X) (0-5/hpf); Mean Corpuscular HGB CONC 34.5 g/dL (32.0-36.0); Mean Corpuscular Hemoglobin 36.7 pg (27.0-31.0); Mean Platelet Volume 6.6 fL (7.4-10.4); Monocytes 5 % (0-10); Neutrophil 76 % (42-75); Platelet Count 326 thou/uL (130-400); Platelet Morphology Comment Appears Adequate; RBC Distribution Width 11.9 % (11.5-14.5); White Blood Cell (WBC) Count 20.8 thou/uL (4.8-10.8)
[2021-01-24 05:28] LABS: ALT (SGPT) 31 U/L (8-55); AST (SGOT) 31 U/L (5-34); Albumin 2.4 g/dL (3.4-4.8); Alkaline Phosphatase 47 U/L (40-110); Anion Gap 15 mmol/L (10-20); BUN (Urea Nitrogen) 13 mg/dL (8.4-25.7); Bilirubin, Total 1.9 mg/dL (0.2-1.2); Calc. Creatinine Clearance 90 mL/min (70-130); Calcium 7.2 mg/dL (7.8-10.44); Carbon Dioxide 17 mmol/L (23-31); Chloride 109 mmol/L (98-107); Globulin 2.2 g/dL (2.4-3.5); Glucose 69 mg/dL (83-110); Potassium 3.6 mmol/L (3.5-5.1); Protein, Total 4.6 g/dL (5.8-8.1); Sodium 137 mmol/L (136-145)
[2021-01-24] MEDS ORDERED: Dextrose 50% Abboject 50 ML SYRINGE ONE (06:18)
[2021-01-24 07:29] LABS: Actual Bicarbonate (HCO3a) 17.6 mEq/L (22-28); Base Excess (BEa) -7.6 mEq/L (-2.0 to +3.0); CO2 Tension 33.9 mmHg (35.0-45.0); Calcium, Ionized (arterial) 1.11 mmol/L (1.12-1.30); Carboxyhemoglobin (COHb) 0.3 gm% (0.0-3.0); Hemoglobin (Hb) 8.5 g/dL (14.0-18.0); Potassium - ABG Lab 3.44 mmol/L (3.70-5.30); pH, Arterial 7.33 (7.35-7.45)
[2021-01-24] MEDS: Dextrose 50% Abboject 50 ML SYRINGE SLOW IVP PRN ×2 (07:41→09:50)
[2021-01-24 08:05] LABS: ALV-art Gradient 63.525 mmHg (0-20); Puncture Site Arterial Line
[2021-01-24] MEDS: Pantoprazole 40 MG VIAL IVP SCH ×2 (09:23→20:12)
[2021-01-24] MEDS: Sodium Bicarbonate 70 MEQ in Sodium Chloride 0.45% 1,000 ML IV SCH ×2 (10:24→20:53)
[2021-01-24] MEDS: Dextrose 10% in Water 1,000 ML IV SCH ×2 (10:24→20:03)
[2021-01-24] MEDS: Sodium Chloride 0.9% (PF) 10 ML VIAL FS PRN (20:12)
[2021-01-24] MEDS ORDERED: Sodium Chloride 0.9% 1,000 ML IV PRN (21:39)
[2021-01-25] MEDS: Fluconazole In NaCl,Iso-Osm 200 MG in Premix Bag 1 BAG IVPB SCH (02:33)
[2021-01-25] MEDS: Piperacillin/Tazobactam 3.375 GM in Sodium Chloride 0.9% 100 ML IVPB SCH ×3 (04:02→21:48)
[2021-01-25 04:52] LABS: Anion Gap 13 mmol/L (10-20); BUN (Urea Nitrogen) 9 mg/dL (8.4-25.7); Calc. Creatinine Clearance 91 mL/min (70-130); Calcium 7.5 mg/dL (7.8-10.44); Carbon Dioxide 23 mmol/L (23-31); Chloride 105 mmol/L (98-107); Glucose 147 mg/dL (83-110); Potassium 3.3 mmol/L (3.5-5.1); Sodium 138 mmol/L (136-145)
[2021-01-25] MEDS: Dextrose 10% in Water 1,000 ML IV SCH ×2 (06:00→11:05)
[2021-01-25 06:03] LABS: Band 1 % (5-11); Eosinophils 3 % (0-10); Hemoglobin 8.5 g/dL (14.0-18.0); Lymphocytes 11 % (21-51); MDiff Complete? YES; Macrocytosis SLIGHT = 6-15 cells (100X) (0-5/hpf); Mean Corpuscular HGB CONC 33.7 g/dL (32.0-36.0); Mean Corpuscular Hemoglobin 35.3 pg (27.0-31.0); Monocytes 6 % (0-10); Neutrophil 79 % (42-75); Platelet Count 370 thou/uL (130-400); Platelet Morphology Comment Appears Adequate; RBC Distribution Width 11.9 % (11.5-14.5)
[2021-01-25] MEDS: Sodium Bicarbonate 70 MEQ in Sodium Chloride 0.45% 1,000 ML IV SCH (07:15)
[2021-01-25] MEDS: Pantoprazole 40 MG VIAL IVP SCH ×2 (09:02→21:48)
[2021-01-25] MEDS ORDERED: MD-Gastroview 120 ML BOT ONE (10:25)
[2021-01-25] MEDS ORDERED: Potassium Chloride 40 MEQ in Premix Bag 1 BAG IVPB SCH (10:30)
[2021-01-26] MEDS: Dextrose 10% in Water 1,000 ML IV SCH (04:15)
[2021-01-26] MEDS: Piperacillin/Tazobactam 3.375 GM in Sodium Chloride 0.9% 100 ML IVPB SCH ×3 (04:15→20:24)
[2021-01-26] MEDS: Fluconazole In NaCl,Iso-Osm 200 MG in Premix Bag 1 BAG IVPB SCH (04:15)
[2021-01-26 04:56] LABS: Chloride 109 mmol/L (98-107); Potassium 3.3 mmol/L (3.5-5.1); Sodium 143 mmol/L (136-145)
[2021-01-26 04:57] LABS: Glucose 124 mg/dL (83-110)
[2021-01-26 04:59] LABS: Carbon Dioxide 26 mmol/L (23-31)
[2021-01-26 05:01] LABS: BUN (Urea Nitrogen) 6 mg/dL (8.4-25.7); Calc. Creatinine Clearance 91 mL/min (70-130)
[2021-01-26 05:04] LABS: Anion Gap 11 mmol/L (10-20)
[2021-01-26 06:28] LABS: Band 4 % (5-11); Eosinophils 5 % (0-10); Hemoglobin 8.7 g/dL (14.0-18.0); Lymphocytes 10 % (21-51); MDiff Complete? YES; Mean Corpuscular HGB CONC 33.6 g/dL (32.0-36.0); Mean Corpuscular Hemoglobin 35.3 pg (27.0-31.0); Mean Platelet Volume 6.7 fL (7.4-10.4); Monocytes 12 % (0-10); Neutrophil 69 % (42-75); Nucleated RBC 1 % (0); Platelet Count 341 thou/uL (130-400); RBC Distribution Width 12.1 % (11.5-14.5); Red Blood Cell (RBC) Count 2.47 mill/uL (4.70-6.10); White Blood Cell (WBC) Count 11.2 thou/uL (4.8-10.8)
[2021-01-26] MEDS: Pantoprazole 40 MG VIAL IVP SCH ×2 (09:38→20:24)
[2021-01-26] MEDS: Potassium Chloride 20 MEQ in Premix Bag 1 BAG IVPB SCH ×2 (12:31→15:37)
[2021-01-26] MEDS ORDERED: Fentanyl 100 MCG/2 ML VIAL SLOW IVP PRN (17:41)
[2021-01-26] MEDS: Fentanyl 100 MCG/2 ML VIAL SLOW IVP PRN (17:50)
[2021-01-26] MEDS: Enoxaparin Sodium 40 MG/0.4 ML SYRINGE SC SCH (20:25)
[2021-01-27] MEDS: Fluconazole In NaCl,Iso-Osm 200 MG in Premix Bag 1 BAG IVPB SCH (04:12)
[2021-01-27] MEDS: Piperacillin/Tazobactam 3.375 GM in Sodium Chloride 0.9% 100 ML IVPB SCH ×3 (04:12→21:23)
[2021-01-27 05:34] LABS: Hemoglobin 8.2 g/dL (14.0-18.0); Mean Corpuscular HGB CONC 34.7 g/dL (32.0-36.0); Platelet Count 344 thou/uL (130-400); RBC Distribution Width 12.2 % (11.5-14.5); Red Blood Cell (RBC) Count 2.26 mill/uL (4.70-6.10); White Blood Cell (WBC) Count 11.7 thou/uL (4.8-10.8)
[2021-01-27 06:05] LABS: Band 7 % (5-11); Eosinophils 4 % (0-10); Lymphocytes 7 % (21-51); MDiff Complete? YES; Monocytes 10 % (0-10); Neutrophil 72 % (42-75)
[2021-01-27 06:29] LABS: Chloride 107 mmol/L (98-107); Potassium 3.3 mmol/L (3.5-5.1); Sodium 139 mmol/L (136-145)
[2021-01-27 06:30] LABS: Calcium 7.9 mg/dL (7.8-10.44); Glucose 127 mg/dL (83-110)
[2021-01-27 06:32] LABS: Anion Gap 11 mmol/L (10-20); Carbon Dioxide 24 mmol/L (23-31)
[2021-01-27 06:33] LABS: Calc. Creatinine Clearance 98 mL/min (70-130)
[2021-01-27 06:34] LABS: BUN (Urea Nitrogen) 5 mg/dL (8.4-25.7)
[2021-01-27] MEDS: Dextrose 10% in Water 1,000 ML IV SCH (09:00)
[2021-01-27] MEDS: Fentanyl 100 MCG/2 ML VIAL SLOW IVP PRN (09:01)
[2021-01-27] MEDS: Pantoprazole 40 MG VIAL IVP SCH ×2 (09:01→21:24)
[2021-01-27 10:35] LABS: Magnesium 1.2 mg/dL (1.6-2.6); Phosphorus 2.2 mg/dL (2.3-4.7)
[2021-01-27] MEDS ORDERED: Sodium Phosphate 30 MMOL in Sodium Chloride 0.9% 250 ML 250 ML IVPB SCH (13:00)
[2021-01-27] MEDS ORDERED: Potassium Phosphate 30 MMOL, Magnesium Sulfate 4 GM in Sodium Chloride 0.9% 250 ML 250 ML IVPB SCH (13:00)
[2021-01-27] MEDS ORDERED: Magnesium 2 GM/50 ML 4 GM in Premix Bag 1 BAG IVPB SCH (13:00)
[2021-01-27] MEDS: Enoxaparin Sodium 40 MG/0.4 ML SYRINGE SC SCH (21:24)
[2021-01-28] MEDS: Fluconazole In NaCl,Iso-Osm 200 MG in Premix Bag 1 BAG IVPB SCH (02:39)
[2021-01-28 05:43] LABS: Hemoglobin 8.2 g/dL (14.0-18.0); Mean Corpuscular HGB CONC 34.8 g/dL (32.0-36.0); Mean Platelet Volume 6.8 fL (7.4-10.4); Platelet Count 332 thou/uL (130-400); RBC Distribution Width 12.6 % (11.5-14.5); Red Blood Cell (RBC) Count 2.28 mill/uL (4.70-6.10); White Blood Cell (WBC) Count 13.2 thou/uL (4.8-10.8)
[2021-01-28 06:23] LABS: BUN (Urea Nitrogen) 5 mg/dL (8.4-25.7); Calc. Creatinine Clearance 98 mL/min (70-130); Calcium 8.2 mg/dL (7.8-10.44); Carbon Dioxide 22 mmol/L (23-31); Chloride 109 mmol/L (98-107); Glucose 101 mg/dL (83-110); Magnesium 1.7 mg/dL (1.6-2.6); Phosphorus 3.7 mg/dL (2.3-4.7); Potassium 3.6 mmol/L (3.5-5.1); Sodium 142 mmol/L (136-145)
[2021-01-28 06:32] LABS: Anion Gap 15 mmol/L (10-20)
[2021-01-28 06:57] LABS: Band 6 % (5-11); Eosinophils 6 % (0-10); Lymphocytes 20 % (21-51); MDiff Complete? YES; Neutrophil 68 % (42-75)
[2021-01-28] MEDS: Piperacillin/Tazobactam 3.375 GM in Sodium Chloride 0.9% 100 ML IVPB SCH ×3 (07:30→20:06)
[2021-01-28] MEDS ORDERED: Magnesium 2 GM/50 ML 2 GM in Premix Bag 1 BAG IVPB SCH (08:30)
[2021-01-28] MEDS ORDERED: Potassium Phosphate 15 MMOL in Sodium Chloride 0.9% 250 ML 250 ML IVPB SCH (08:30)
[2021-01-28] MEDS: Pantoprazole 40 MG VIAL IVP SCH ×2 (10:03→20:06)
[2021-01-28] MEDS ORDERED: Hydrochlorothiazide 25 MG TAB PO SCH (12:15)
[2021-01-28] MEDS: Enoxaparin Sodium 40 MG/0.4 ML SYRINGE SC SCH (20:06)
[2021-01-28] MEDS: Atorvastatin Calcium 10 MG TAB PO SCH (20:06)
[2021-01-28] MEDS: Carvedilol 3.125 MG TAB PO SCH (20:06)
[2021-01-29 04:50] LABS: #Eosinphils 0.8 thou/uL (0.0-0.7); #Lymphocytes 2.3 thou/uL (1.20-3.40); #Monocytes 1.3 thou/uL (0.11-0.59); %Eosinophils 6.8 % (0.0-10.0); %Lymphocytes 18.1 % (21.0-51.0); %Monocytes 10.3 % (0.0-10.0); %Neutrophils 64.7 % (42.0-75.0); Hemoglobin 7.4 g/dL (14.0-18.0); Mean Corpuscular HGB CONC 34.4 g/dL (32.0-36.0); Mean Corpuscular Hemoglobin 35.9 pg (27.0-31.0); Platelet Count 293 thou/uL (130-400); RBC Distribution Width 12.4 % (11.5-14.5); Red Blood Cell (RBC) Count 2.06 mill/uL (4.70-6.10); White Blood Cell (WBC) Count 12.4 thou/uL (4.8-10.8)
[2021-01-29 05:18] LABS: Phosphorus 3.1 mg/dL (2.3-4.7)
[2021-01-29 05:30] LABS: Anion Gap 14 mmol/L (10-20); BUN (Urea Nitrogen) 5 mg/dL (8.4-25.7); Calc. Creatinine Clearance 94 mL/min (70-130); Calcium 8.2 mg/dL (7.8-10.44); Carbon Dioxide 22 mmol/L (23-31); Chloride 108 mmol/L (98-107); Glucose 116 mg/dL (83-110); Magnesium 1.8 mg/dL (1.6-2.6); Potassium 3.4 mmol/L (3.5-5.1); Sodium 141 mmol/L (136-145)
[2021-01-29] MEDS: Hydrochlorothiazide 25 MG TAB PO SCH (08:36)
[2021-01-29] MEDS: Carvedilol 3.125 MG TAB PO SCH ×2 (08:36→21:32)
[2021-01-29] MEDS: Loratadine 10 MG TAB PO SCH (08:36)
[2021-01-29] MEDS: Pantoprazole 40 MG VIAL IVP SCH (08:37)
[2021-01-29] MEDS ORDERED: Potassium Bicarbonate/Cit Ac 20 MEQ TAB PO SCH (08:45)
[2021-01-29] MEDS ORDERED: Pantoprazole 40 MG GRANULES PACKET PO SCH (09:00)
[2021-01-29 13:24] LABS: Actual Bicarbonate (HCO3a) 12.9 mEq/L (22-28); Analyzer IN Cardio OR; Base Excess (BEa) -13.5 mEq/L (-2.0 to +3.0); CO2 Tension 31.6 mmHg (35.0-45.0); Calcium, Ionized (arterial) 1.01 mmol/L (1.12-1.30); Carboxyhemoglobin (COHb) 0.4 gm% (0.0-3.0); Hemoglobin (Hb) 9.1 g/dL (14.0-18.0); O2 Tension (PaO2), arterial 413.2 mmHg (> 70.0); Potassium - ABG Lab 3.92 mmol/L (3.70-5.30)
[2021-01-29 13:25] LABS: Puncture Site Arterial Line; pH, Arterial 7.23 (7.35-7.45)
[2021-01-29 15:42] LABS: Potassium 3.8 mmol/L (3.5-5.1)
[2021-01-29] MEDS: Enoxaparin Sodium 40 MG/0.4 ML SYRINGE SC SCH (21:31)
[2021-01-29] MEDS: Pantoprazole 40 MG GRANULES PACKET PO SCH (21:31)
[2021-01-29] MEDS: Atorvastatin Calcium 10 MG TAB PO SCH (21:31)
[2021-01-30] MEDS: Fentanyl 100 MCG/2 ML VIAL SLOW IVP PRN (04:49)
[2021-01-30] MEDS: Carvedilol 3.125 MG TAB PO SCH ×2 (09:02→20:21)
[2021-01-30] MEDS: Loratadine 10 MG TAB PO SCH (09:02)
[2021-01-30] MEDS: Hydrochlorothiazide 25 MG TAB PO SCH (09:02)
[2021-01-30] MEDS: Pantoprazole 40 MG GRANULES PACKET PO SCH ×2 (09:02→20:24)
[2021-01-30 14:45] LABS: SARS-CoV-2 PCR by NAA Not Detected (NotDetected)
[2021-01-30] MEDS: Atorvastatin Calcium 10 MG TAB PO SCH (20:21)
[2021-01-30] MEDS: Enoxaparin Sodium 40 MG/0.4 ML SYRINGE SC SCH (20:21)
[2021-01-31] MEDS: Fentanyl 100 MCG/2 ML VIAL SLOW IVP PRN ×3 (04:15→18:20)
[2021-01-31] MEDS: Carvedilol 3.125 MG TAB PO SCH ×2 (08:30→20:16)
[2021-01-31] MEDS: Hydrochlorothiazide 25 MG TAB PO SCH (08:30)
[2021-01-31] MEDS: Pantoprazole 40 MG GRANULES PACKET PO SCH ×2 (08:30→20:15)
[2021-01-31] MEDS: Loratadine 10 MG TAB PO SCH (08:30)
[2021-01-31] MEDS: Enoxaparin Sodium 40 MG/0.4 ML SYRINGE SC SCH (20:16)
[2021-01-31] MEDS: Atorvastatin Calcium 10 MG TAB PO SCH (20:16)
[2021-01-31] MEDS: traMADol HCl 50 MG TAB PO PRN (20:17)
[2021-02-01] MEDS: Hydrochlorothiazide 25 MG TAB PO SCH (08:17)
[2021-02-01] MEDS: Loratadine 10 MG TAB PO SCH (08:18)
[2021-02-01] MEDS: Pantoprazole 40 MG GRANULES PACKET PO SCH (08:18)
[2021-02-01] MEDS: Carvedilol 3.125 MG TAB PO SCH (08:18)
[2021-02-01 11:32] VITALS: BMI 32.8
[2021-02-01] MEDS: Fentanyl 100 MCG/2 ML VIAL SLOW IVP PRN ×2 (12:32→14:41)
[2021-02-01 15:39] VITALS: BP 136/72; TEMP 98.1
[2021-02-01] MEDS: traMADol HCl 50 MG TAB PO PRN (15:51)
== END 2021-02-01 15:58 | DRG 853 ==
LOC: ERS 20:44 → SDC/OP 23:58 → CCU 01-22 01:31 → IMCU/EMU 01-25 20:03 → T4-B 01-30 04:44
PROVIDERS: ADMIT Surgery; ATTEND Surgery
PROC: 0DU907Z Supplement Duodenum with Autologous Tissue Substitute, Open Approach (ICD-10-PCS; principal; 2021-01-22)
PROC: 0D9670Z Drainage of Stomach with Drainage Device, Via Natural or Artificial Opening (ICD-10-PCS; 2021-01-22)
PROC: 3E033XZ Introduction of Vasopressor into Peripheral Vein, Percutaneous Approach (ICD-10-PCS; 2021-01-22)
PROC: 5A1945Z Respiratory Ventilation, 24-96 Consecutive Hours (ICD-10-PCS; 2021-01-22)
DX: A41.9 Sepsis, unspecified organism (principal); K26.5 Chronic or unspecified duodenal ulcer with perforation; N17.0 Acute kidney failure with tubular necrosis; R65.21 Severe sepsis with septic shock; J96.00 Acute respiratory failure, unspecified whether with hypoxia or hypercapnia; D62 Acute posthemorrhagic anemia; Z20.822 Contact with and (suspected) exposure to COVID-19; I25.10 Atherosclerotic heart disease of native coronary artery without angina pectoris; H91.3 Deaf nonspeaking, not elsewhere classified; F32.A Depression, unspecified; I12.9 Hypertensive chronic kidney disease with stage 1 through stage 4 chronic kidney disease, or unspecified chronic kidney disease; E11.22 Type 2 diabetes mellitus with diabetic chronic kidney disease; N18.9 Chronic kidney disease, unspecified; E78.5 Hyperlipidemia, unspecified; R13.10 Dysphagia, unspecified; E83.39 Other disorders of phosphorus metabolism; E87.6 Hypokalemia; E83.42 Hypomagnesemia; E11.649 Type 2 diabetes mellitus with hypoglycemia without coma; Z95.1 Presence of aortocoronary bypass graft; Z79.82 Long term (current) use of aspirin; Z79.899 Other long term (current) drug therapy; Z79.84 Long term (current) use of oral hypoglycemic drugs
CPT/HCPCS: 36415; 36416; 71045; 74177; 74250; 80048; 80053; 82805; 83605; 83690; 83735; 84100; 85025; 93005; 94002; 94003; 96365; 96375; C1751; C9113; J0610; J1450; J1650; J1815; J1940; J2060; J2405; J2543; J3010; J3475; J3480; J3490; J7050; J7611; P9045; Q9963; Q9967; U0002; U0003; U0005

== ENCOUNTER 2021-02-14 10:23 | Inpatient (IN) | payer MEDICARE, MEDICAID ==
[2021-02-14] MEDS ORDERED: Piperacillin/Tazobactam 3.375 GM VIAL ONE (11:50)
[2021-02-14 11:53] LABS: Hemoglobin 9.5 g/dL (14.0-18.0); Mean Corpuscular HGB CONC 33.2 g/dL (32.0-36.0); Mean Corpuscular Hemoglobin 34.7 pg (27.0-31.0); Mean Platelet Volume 6.4 fL (7.4-10.4); Platelet Count 653 thou/uL (130-400); RBC Distribution Width 12.3 % (11.5-14.5); Red Blood Cell (RBC) Count 2.72 mill/uL (4.70-6.10); White Blood Cell (WBC) Count 24.6 thou/uL (4.8-10.8)
[2021-02-14 12:12] LABS: ALT (SGPT) 47 U/L (8-55); AST (SGOT) 47 U/L (5-34); Albumin 3.3 g/dL (3.4-4.8); Alkaline Phosphatase 106 U/L (40-110); Anion Gap 16 mmol/L (10-20); BUN (Urea Nitrogen) 15 mg/dL (8.4-25.7); Bilirubin, Total 0.9 mg/dL (0.2-1.2); Calc. Creatinine Clearance 0 mL/min (70-130); Calcium 9.3 mg/dL (7.8-10.44); Carbon Dioxide 21 mmol/L (23-31); Chloride 102 mmol/L (98-107); Globulin 3.6 g/dL (2.4-3.5); Glucose 85 mg/dL (83-110); Potassium 4.3 mmol/L (3.5-5.1); Protein, Total 6.9 g/dL (5.8-8.1); Sodium 135 mmol/L (136-145)
[2021-02-14] MEDS ORDERED: Vancomycin 1 GM/200 ML BAG ONE (12:34)
[2021-02-14 12:38] LABS: Band 17 % (5-11); Eosinophils 2 % (0-10); Lymphocytes 7 % (21-51); Metamyelocyte 3 % (0-0); Monocytes 6 % (0-10); Myelocyte 4 % (0-0); Neutrophil 59 % (42-75); Platelet Morphology Comment Appears Increased; Polychromasia SLIGHT = 2-3 cells (100X) (0-2/hpf); Reactive Lymphocytes 2 % (0-10)
[2021-02-14 12:51] LABS: MDiff Complete? YES
[2021-02-14] MEDS ORDERED: METRONIDAZOLE IVPB SCH (18:00)
[2021-02-14] MEDS ORDERED: Piperacillin/Tazobactam 3.375 GM in Sodium Chloride 0.9% 100 ML IVPB SCH (18:00)
[2021-02-14] MEDS ORDERED: Cefepime 1 GM in Sodium Chloride 0.9% 100 ML IVPB SCH (18:00)
[2021-02-14] MEDS: Piperacillin/Tazobactam 3.375 GM in Sodium Chloride 0.9% 100 ML IVPB SCH (19:46)
[2021-02-14] MEDS ORDERED: Dextrose 50% Abboject 50 ML SYRINGE SLOW IVP PRN (20:01)
[2021-02-14] MEDS ORDERED: HumaLOG 300 UNITS/3 ML VIAL SC PRN (20:01)
[2021-02-14] MEDS ORDERED: Dextrose 5% in Water 1,000 ML IV PRN (20:01)
[2021-02-14] MEDS: Sodium Chloride 0.9% 1,000 ML IV SCH (20:47)
[2021-02-14 22:45] VITALS: BMI 37.1
[2021-02-15] MEDS: Sodium Chloride 0.9% 1,000 ML IV SCH ×2 (03:10→14:17)
[2021-02-15] MEDS: Piperacillin/Tazobactam 3.375 GM in Sodium Chloride 0.9% 100 ML IVPB SCH ×3 (03:10→18:16)
[2021-02-15 07:37] LABS: SARS-CoV-2 PCR by NAA Not Detected (NotDetected)
[2021-02-15] MEDS ORDERED: Non-Formulary Item 1 EACH (Tizanidine Hcl [Tizanidine Hcl] 2 MG Tablet) PO PRN (07:48)
[2021-02-15] MEDS ORDERED: FLUoxetine HCl 10 MG CAP PO SCH ×2 (08:00→09:00)
[2021-02-15] MEDS ORDERED: tiZANidine HCl 4 MG TAB PO PRN (08:05)
[2021-02-15 08:57] LABS: Hemoglobin 8.4 g/dL (14.0-18.0); Mean Corpuscular HGB CONC 32.7 g/dL (32.0-36.0); Mean Corpuscular Hemoglobin 34.4 pg (27.0-31.0); Mean Platelet Volume 6.7 fL (7.4-10.4); Platelet Count 725 thou/uL (130-400); RBC Distribution Width 12.5 % (11.5-14.5); Red Blood Cell (RBC) Count 2.45 mill/uL (4.70-6.10); White Blood Cell (WBC) Count 26.4 thou/uL (4.8-10.8)
[2021-02-15] MEDS ORDERED: Non-Formulary Item 1 EACH (Ranolazine [Ranolazine Er] 1,000 MG Tab.Er.12h) PO SCH (09:00)
[2021-02-15] MEDS ORDERED: Non-Formulary Item 1 EACH (Fexofenadine Hcl [Allegra Allergy] 180 MG Tablet) PO SCH (09:00)
[2021-02-15] MEDS ORDERED: Non-Formulary Item 1 EACH (Losartan Potassium [Cozaar] 100 MG Tablet) PO SCH (09:00)
[2021-02-15] MEDS ORDERED: Fluticasone Propionate Nasal Spray 16 gm Bottle NASAL SCH (09:00)
[2021-02-15 09:09] LABS: Anion Gap 17 mmol/L (10-20); BUN (Urea Nitrogen) 13 mg/dL (8.4-25.7); Calc. Creatinine Clearance 52 mL/min (70-130); Calcium 9.2 mg/dL (7.8-10.44); Carbon Dioxide 18 mmol/L (23-31); Chloride 106 mmol/L (98-107); Glucose 81 mg/dL (83-110); Potassium 5.1 mmol/L (3.5-5.1); Sodium 136 mmol/L (136-145)
[2021-02-15 09:37] LABS: Band 25 % (5-11); Eosinophils 6 % (0-10); Lymphocytes 7 % (21-51); MDiff Complete? YES; Macrocytosis SLIGHT = 6-15 cells (100X) (0-5/hpf); Metamyelocyte 3 % (0-0); Monocytes 8 % (0-10); Myelocyte 2 % (0-0); Neutrophil 49 % (42-75); Platelet Morphology Comment Appears Increased; Polychromasia SLIGHT = 2-3 cells (100X) (0-2/hpf)
[2021-02-15] MEDS: Enoxaparin Sodium 40 MG/0.4 ML SYRINGE SC SCH (10:04)
[2021-02-15] MEDS: Carvedilol 3.125 MG TAB PO SCH ×2 (10:05→21:03)
[2021-02-15] MEDS: Aspirin 325 MG TAB PO SCH (10:05)
[2021-02-15] MEDS: Hydrochlorothiazide 25 MG TAB PO SCH (10:06)
[2021-02-15] MEDS: Loratadine 10 MG TAB PO SCH (10:06)
[2021-02-15] MEDS: Potassium Chloride 20 MEQ TAB PO SCH (10:07)
[2021-02-15] MEDS: Pantoprazole 40 MG GRANULES PACKET PO SCH ×2 (10:07→21:03)
[2021-02-15] MEDS: Losartan 25 MG TAB PO SCH (10:07)
[2021-02-15] MEDS: Morphine 4 MG/ML VIAL SLOW IVP PRN ×2 (10:19→18:23)
[2021-02-15] MEDS: Fluticasone Propionate Nasal Spray 16 gm Bottle NASAL SCH (18:17)
[2021-02-15] MEDS ORDERED: Pravastatin Sodium 40 MG TAB PO SCH (21:00)
[2021-02-15] MEDS ORDERED: Atorvastatin Calcium 10 MG TAB PO SCH (21:00)
[2021-02-15] MEDS: Atorvastatin Calcium 10 MG TAB PO SCH (21:03)
[2021-02-16] MEDS: Sodium Chloride 0.9% 1,000 ML IV SCH ×3 (00:21→20:51)
[2021-02-16] MEDS: Piperacillin/Tazobactam 3.375 GM in Sodium Chloride 0.9% 100 ML IVPB SCH ×3 (01:48→17:42)
[2021-02-16 07:55] LABS: Hemoglobin 8.2 g/dL (14.0-18.0); Mean Corpuscular HGB CONC 31.7 g/dL (32.0-36.0); Mean Corpuscular Hemoglobin 33.3 pg (27.0-31.0); Mean Platelet Volume 6.7 fL (7.4-10.4); Platelet Count 626 thou/uL (130-400); RBC Distribution Width 12.5 % (11.5-14.5); Red Blood Cell (RBC) Count 2.45 mill/uL (4.70-6.10); White Blood Cell (WBC) Count 25.3 thou/uL (4.8-10.8)
[2021-02-16 08:08] LABS: Anion Gap 14 mmol/L (10-20); BUN (Urea Nitrogen) 10 mg/dL (8.4-25.7); Calc. Creatinine Clearance 59 mL/min (70-130); Calcium 8.9 mg/dL (7.8-10.44); Carbon Dioxide 20 mmol/L (23-31); Chloride 107 mmol/L (98-107); Glucose 95 mg/dL (83-110); Potassium 3.4 mmol/L (3.5-5.1); Sodium 138 mmol/L (136-145)
[2021-02-16] MEDS: Losartan 25 MG TAB PO SCH (08:20)
[2021-02-16] MEDS: Pantoprazole 40 MG GRANULES PACKET PO SCH ×2 (08:20→20:50)
[2021-02-16] MEDS: Aspirin 325 MG TAB PO SCH (08:20)
[2021-02-16] MEDS: Carvedilol 3.125 MG TAB PO SCH ×2 (08:20→20:50)
[2021-02-16] MEDS: Hydrochlorothiazide 25 MG TAB PO SCH (08:20)
[2021-02-16] MEDS: Loratadine 10 MG TAB PO SCH (08:20)
[2021-02-16] MEDS: Potassium Chloride 20 MEQ TAB PO SCH (08:21)
[2021-02-16] MEDS: Fluticasone Propionate Nasal Spray 16 gm Bottle NASAL SCH (08:22)
[2021-02-16] MEDS: Enoxaparin Sodium 40 MG/0.4 ML SYRINGE SC SCH (08:22)
[2021-02-16 08:36] LABS: Band 13 % (5-11); Eosinophils 4 % (0-10); Lymphocytes 14 % (21-51); MDiff Complete? YES; Metamyelocyte 2 % (0-0); Monocytes 4 % (0-10); Myelocyte 2 % (0-0); Neutrophil 61 % (42-75); Platelet Morphology Comment Appears Increased; Polychromasia SLIGHT = 2-3 cells (100X) (0-2/hpf)
[2021-02-16] MEDS: Morphine 4 MG/ML VIAL SLOW IVP PRN (09:06)
[2021-02-16] MEDS: Atorvastatin Calcium 10 MG TAB PO SCH (20:49)
[2021-02-17] MEDS: Piperacillin/Tazobactam 3.375 GM in Sodium Chloride 0.9% 100 ML IVPB SCH ×2 (01:41→09:04)
[2021-02-17] MEDS: Sodium Chloride 0.9% 1,000 ML IV SCH (05:37)
[2021-02-17 07:37] LABS: Anion Gap 14 mmol/L (10-20); BUN (Urea Nitrogen) 8 mg/dL (8.4-25.7); Calc. Creatinine Clearance 59 mL/min (70-130); Calcium 8.5 mg/dL (7.8-10.44); Carbon Dioxide 18 mmol/L (23-31); Chloride 109 mmol/L (98-107); Glucose 113 mg/dL (83-110); Potassium 3.6 mmol/L (3.5-5.1); Sodium 137 mmol/L (136-145)
[2021-02-17 07:52] VITALS: BP 122/70; TEMP 97.7
[2021-02-17] MEDS: Losartan 25 MG TAB PO SCH (07:52)
[2021-02-17] MEDS: Fluticasone Propionate Nasal Spray 16 gm Bottle NASAL SCH (07:53)
[2021-02-17] MEDS: Potassium Chloride 20 MEQ TAB PO SCH (07:53)
[2021-02-17] MEDS: Carvedilol 3.125 MG TAB PO SCH (07:53)
[2021-02-17] MEDS: Pantoprazole 40 MG GRANULES PACKET PO SCH (07:53)
[2021-02-17] MEDS: Aspirin 325 MG TAB PO SCH (07:53)
[2021-02-17] MEDS: Hydrochlorothiazide 25 MG TAB PO SCH (07:53)
[2021-02-17] MEDS: Enoxaparin Sodium 40 MG/0.4 ML SYRINGE SC SCH (07:53)
[2021-02-17] MEDS: Loratadine 10 MG TAB PO SCH (07:53)
[2021-02-17 07:58] LABS: Mean Corpuscular HGB CONC 32.4 g/dL (32.0-36.0); Mean Corpuscular Hemoglobin 34.4 pg (27.0-31.0); RBC Distribution Width 12.6 % (11.5-14.5); Red Blood Cell (RBC) Count 2.61 mill/uL (4.70-6.10)
[2021-02-17] MEDS: Morphine 4 MG/ML VIAL SLOW IVP PRN (09:07)
[2021-02-17 10:19] LABS: Band 6 % (5-11); Eosinophils 2 % (0-10); Lymphocytes 5 % (21-51); MDiff Complete? YES; Mean Platelet Volume 6.6 fL (7.4-10.4); Metamyelocyte 1 % (0-0); Monocytes 13 % (0-10); Myelocyte 1 % (0-0); Neutrophil 72 % (42-75); Platelet Count 497 thou/uL (130-400); Platelet Morphology Comment Appears Increased; Vacuoles SLIGHT; White Blood Cell (WBC) Count 27.6 thou/uL (4.8-10.8)
== END 2021-02-17 13:21 | disposition hospice, home (50) | DRG 394 ==
LOC: ERS 10:23 → T4-A 16:28 → OBSVTOIN 02-16 14:20
PROVIDERS: ADMIT Hospitalist; ATTEND Internal Medicine
DX: K63.1 Perforation of intestine (nontraumatic) (principal); E87.2 Acidosis; Z51.5 Encounter for palliative care; Z66 Do not resuscitate; Z20.822 Contact with and (suspected) exposure to COVID-19; I10 Essential (primary) hypertension; D64.9 Anemia, unspecified; I25.10 Atherosclerotic heart disease of native coronary artery without angina pectoris; F32.A Depression, unspecified; E78.5 Hyperlipidemia, unspecified; H91.3 Deaf nonspeaking, not elsewhere classified; Z95.1 Presence of aortocoronary bypass graft; Z79.84 Long term (current) use of oral hypoglycemic drugs; Z79.82 Long term (current) use of aspirin; Z79.51 Long term (current) use of inhaled steroids; Z98.890 Other specified postprocedural states
CPT/HCPCS: 36415; 36416; 74177; 80048; 83605; 85025; 87040; 93005; 96365; 96366; 96367; 96372; 96375; 96376; G0378; J1650; J2270; J2543; J3370; J3490; J7050; Q9967; U0003; U0005